=== PATIENT | female | born 1950 | race Caucasian/White ===

== ENCOUNTER → 2019-08-30 | Outpatient (CLI) | payer MEDICARE, OTHER ==
[2014-06-10 08:45] VITALS: BP 165/62
[~2019-08-30] MED LIST: ASPI-630 PO; ATOR20TA PO; CA C1TAB63 PO; MOXI3DRO18 LEFTEYE; MOXI3DRO18 RIGHTEYE; MULT-658 PO; NEPA1.7D LEFTEYE; NEPA1.7D RIGHTEYE; OCUVITE SOFTGE1 EACH PO; OMEG1CAP16 PO; PRED5DRO16 LEFTEYE; PRED5DRO16 RIGHTEYE
== END | disposition home or self-care (01) ==
LOC: LAB 09:30
PROVIDERS: ATTEND Registered Nurse
DX: Z11.59 Encounter for screening for other viral diseases (principal)
CPT/HCPCS: C9803; U0003; 87299

== ENCOUNTER → 2019-09-03 | Day surgery (SDC) | payer MEDICARE, OTHER ==
[~2019-09-03] MED LIST changes: +IPRATRPIUM/ALBUTEROL 0.5/2.5MG 3 ML NEBU. NEB PRN; +IV RINGERS SOLUTION,LACTATED 1,000 ML IV SCH; +ONDANSETRON PF 4 MG/2 ML VIAL. IV PRN; +PROPOFOL 10,000 MCG/ML (20ML) VIAL IV ONE
[2019-09-03 10:30] VITALS: BP 129/69
== END ==
LOC: SURG 07:55
PROVIDERS: ATTEND Emergency Medicine
DX: Z09 Encounter for follow-up examination after completed treatment for conditions other than malignant neoplasm (principal); Z86.010 Personal history of colon polyps; K64.8 Other hemorrhoids; K63.89 Other specified diseases of intestine; Z88.2 Allergy status to sulfonamides; Z88.0 Allergy status to penicillin; Z88.1 Allergy status to other antibiotic agents; Z79.899 Other long term (current) drug therapy; Z98.890 Other specified postprocedural states
CPT/HCPCS: G0105; J2704; J7120; 45378